=== PATIENT | male | born 1930 | race Caucasian/White ===

== ENCOUNTER 2017-11-24 06:53 | Inpatient (IN) | payer MEDICARE, BC ==
--- NOTE | 2017-11-24 07:35 | ED ---
General Adult HPI - General Chief complaint: Shortness of Breath Stated complaint: SOB Time Seen by Provider: 11/24/17 07:00 Source: patient, RN notes reviewed Mode of arrival: ambulatory Limitations: no limitations - History of Present Illness Initial comments: This is an 87-year-old male who has a past medical history significant for congestive heart failure and after surgery of PE in the past patient also has a history of A. fib and a pacemaker. Patient comes in today because he states for the last 3 days after having come from [place] about a week and half ago he has been short of breath. Patient states she's hospitalized congestion and coughing up quite a bit of phlegm in the morning. Patient states when he lays flat he feels as though the dyspnea is worse. Patient states he's had no chest pain or pressure. Patient denies any palpitations. Patient denies any recent fever or chills. Patient denies abdominal pain patient denies any nausea vomiting diarrhea. Patient denies headache patient denies numbness weakness. Patient denies any lightheadedness dizziness or near syncopal episode. - Related Data Home Medications Medication Instructions Recorded Confirmed Benzonatate [Tessalon Perles] 100 mg PO TID 11/24/17 11/24/17 Budesonide/Formoterol Fumarate 2 puff INHALATION BID 11/24/17 11/24/17 [Symbicort 160-4.5 Mcg Inhaler] Finasteride [Proscar] 5 mg PO DAILY 11/24/17 11/24/17 Fluticasone Nasal [place] [Flonase 2 spr EA NOSTRIL DAILY 11/24/17 11/24/17 Nasal [place]] Furosemide [Lasix] 40 mg PO DAILY 11/24/17 11/24/17 Lisinopril [Zestril] 10 mg PO DAILY 11/24/17 11/24/17 Metoprolol Tartrate [Lopressor] 50 mg PO HS 11/24/17 11/24/17 Simvastatin [Zocor] 20 mg PO HS 11/24/17 11/24/17 Tamsulosin [Flomax] 0.4 mg PO DAILY 11/24/17 11/24/17 Warfarin [Coumadin] 5 mg PO DAILY 11/24/17 11/24/17 guaiFENesin [Mucinex] 600 mg PO 11/24/17 Allergies Allergy/AdvReac Type Severity Reaction Status Date / Time No Known Allergies Allergy Verified 11/24/17 07:02 Review of Systems ROS Statement: Those systems with pertinent positive or pertinent negative responses have been documented in the HPI. ROS Other: All systems not noted in ROS Statement are negative. Past Medical History Past Medical History: Atrial Fibrillation, Heart Failure, Hyperlipidemia, Hypertension, Prostate Disorder History of Any Multi-Drug Resistant Organisms: None Reported Past Surgical History: Hernia Repair Past Psychological History: No Psychological Hx Reported Smoking Status: Former smoker Past Alcohol Use History: Occasional Past Drug Use History: None Reported General Exam - General Exam Comments Initial Comments: GENERAL: Patient is well-developed and well-nourished. Patient is nontoxic and well- hydrated and is in no acute distress. ENT: Neck is soft and supple. No significant lymphadenopathy is noted. Oropharynx is clear. Moist mucous membranes. Neck has full range of motion without eliciting any pain. EYES: The sclera were anicteric and conjunctiva were pink and moist. Extraocular movements were intact and pupils were equal round and reactive to light. Eyelids were unremarkable. PULMONARY: Unlabored respirations. Good breath sounds bilaterally. No audible rales rhonchi or wheezing was noted. CARDIOVASCULAR: There is a regular rate and rhythm without any murmurs gallops or rubs. ABDOMEN: Soft and nontender with normal bowel sounds. No palpable organomegaly was noted. There is no palpable pulsatile mass. SKIN: Skin is clear with no lesions or rashes and otherwise unremarkable. NEUROLOGIC: Patient is alert and oriented x3. Cranial nerves II through XII are grossly intact. Motor and sensory are also intact. Normal speech, volume and content. Symmetrical smile. MUSCULOSKELETAL: Normal extremities with adequate strength and full range of motion. No lower extremity swelling or edema. No calf tenderness. LYMPHATICS: No significant lymphadenopathy is noted PSYCHIATRIC: Normal psychiatric evaluation. Normal interpersonal interactions appears functionally intact in deals appropriately with others. No signs of depression. No signs of anxiety. Limitations: no limitations Course Vital Signs 11/24/17 11/24/17 06:55 08:53 Temperature 98.1 F Pulse Rate 69 Respiratory 22 18 Rate Blood Pressure 154/81 O2 Sat by Pulse 92 L Oximetry Medical Decision Making - Medical Decision Making EKG shows paced rhythm at 70 bpm MA interval is 280 QRS is 132 QT interval 442 QTC is 503. Patient's chest x-ray showed a large heart but no obvious failure. - Lab Data Result diagrams: 11/24/17 07:15 11/24/17 07:15 Lab Results 11/24/17 11/24/17 11/24/17 Range/Units 07:15 07:15 07:15 WBC 5.6 (3.8-10.6) k/uL RBC 4.51 (4.30-5.90) m/uL Hgb 14.4 (13.0-17.5) gm/dL Hct 44.9 (39.0-53.0) % MCV 99.4 (80.0-100.0) fL MCH 32.0 (25.0-35.0) pg MCHC 32.2 (31.0-37.0) g/dL RDW 13.9 (11.5-15.5) % Plt Count 218 (150-450) k/uL Neutrophils % 78 % Lymphocytes % 10 % Monocytes % 7 % Eosinophils % 2 % Basophils % 0 % Neutrophils # 4.3 (1.3-7.7) k/uL Lymphocytes # 0.6 L (1.0-4.8) k/uL Monocytes # 0.4 (0-1.0) k/uL Eosinophils # 0.1 (0-0.7) k/uL Basophils # 0.0 (0-0.2) k/uL PT (9.0-12.0) sec INR (<1.2) APTT (22.0-30.0) sec D-Dimer (<0.60) mg/L FEU Sodium 141 (137-145) mmol/L Potassium 4.0 (3.5-5.1) mmol/L Chloride 103 (98-107) mmol/L Carbon Dioxide 32 H (22-30) mmol/L Anion Gap 6 mmol/L BUN 22 H (9-20) mg/dL Creatinine 1.28 H (0.66-1.25) mg/dL Est GFR (CKD-EPI)AfAm 59 (>60 ml/min/1.73 sqM) Est GFR (CKD-EPI)NonAf 51 (>60 ml/min/1.73 sqM) Glucose 164 H (74-99) mg/dL Calcium 9.4 (8.4-10.2) mg/dL Magnesium 2.0 (1.6-2.3) mg/dL Total Bilirubin 1.0 (0.2-1.3) mg/dL AST 23 (17-59) U/L ALT 42 (21-72) U/L Alkaline Phosphatase 58 (38-126) U/L Total Creatine Kinase 42 L (55-170) U/L CK-MB (CK-2) 1.8 (0.0-2.4) ng/mL CK-MB (CK-2) Rel Index 4.3 Troponin I 0.022 (0.000-0.034) ng/mL NT-Pro-B Natriuret Pep pg/mL Total Protein 5.9 L (6.3-8.2) g/dL Albumin 3.6 (3.5-5.0) g/dL 11/24/17 11/24/17 Range/Units 07:15 07:15 WBC (3.8-10.6) k/uL RBC (4.30-5.90) m/uL Hgb (13.0-17.5) gm/dL Hct (39.0-53.0) % MCV (80.0-100.0) fL MCH (25.0-35.0) pg MCHC (31.0-37.0) g/dL RDW (11.5-15.5) % Plt Count (150-450) k/uL Neutrophils % % Lymphocytes % % Monocytes % % Eosinophils % % Basophils % % Neutrophils # (1.3-7.7) k/uL Lymphocytes # (1.0-4.8) k/uL Monocytes # (0-1.0) k/uL Eosinophils # (0-0.7) k/uL Basophils # (0-0.2) k/uL PT 39.9 H (9.0-12.0) sec INR 4.4 H (<1.2) APTT 39.6 H (22.0-30.0) sec D-Dimer <0.17 (<0.60) mg/L FEU Sodium (137-145) mmol/L Potassium (3.5-5.1) mmol/L Chloride (98-107) mmol/L Carbon Dioxide (22-30) mmol/L Anion Gap mmol/L BUN (9-20) mg/dL Creatinine (0.66-1.25) mg/dL Est GFR (CKD-EPI)AfAm (>60 ml/min/1.73 sqM) Est GFR (CKD-EPI)NonAf (>60 ml/min/1.73 sqM) Glucose (74-99) mg/dL Calcium (8.4-10.2) mg/dL Magnesium (1.6-2.3) mg/dL Total Bilirubin (0.2-1.3) mg/dL AST (17-59) U/L ALT (21-72) U/L Alkaline Phosphatase (38-126) U/L Total Creatine Kinase (55-170) U/L CK-MB (CK-2) (0.0-2.4) ng/mL CK-MB (CK-2) Rel Index Troponin I (0.000-0.034) ng/mL NT-Pro-B Natriuret Pep 60703 pg/mL Total Protein (6.3-8.2) g/dL Albumin (3.5-5.0) g/dL Disposition Clinical Impression: Congestive heart failure Disposition: ADMITTED IP TO THIS [facility] Referrals: Nonstaff,Physician [Primary Care Provider] - 1-2 days Time of Disposition: 08:56
[2017-11-24 07:59] LABS: Basophils % (A) 0 %; Eosinophils # (A) 0.1 k/uL (0-0.7); Eosinophils % (A) 2 %; HCT 44.9 % (39.0-53.0); HGB 14.4 gm/dL (13.0-17.5); Lymphocytes # (A) 0.6 k/uL (1.0-4.8); Lymphocytes % (A) 10 %; MCHC 32.2 g/dL (31.0-37.0); MCV 99.4 fL (80.0-100.0); Mean Platelet Volume 7.2; Monocytes # (A) 0.4 k/uL (0-1.0); Monocytes % (A) 7 %; Neutrophils # (A) 4.3 k/uL (1.3-7.7); Neutrophils % (A) 78 %; Platelet Count 218 k/uL (150-450); RBC 4.51 m/uL (4.30-5.90); RDW 13.9 % (11.5-15.5); WBC 5.6 k/uL (3.8-10.6)
[2017-11-24 08:01] LABS: Albumin 3.6 g/dL (3.5-5.0); Calcium 9.4 mg/dL (8.4-10.2); Total Protein 5.9 g/dL (6.3-8.2)
[2017-11-24 08:06] LABS: INR 4.4 (<1.2); Partial Thromboplastin Time 39.6 sec (22.0-30.0); Prothrombin Time 39.9 sec (9.0-12.0)
[2017-11-24 08:09] LABS: D-Dimer <0.17 mg/L FEU (<0.60)
--- NOTE | 2017-11-24 08:09 | XR ---
EXAMINATION TYPE: XR chest 2V DATE OF EXAM: 11/24/2017 HISTORY: difficulty breathing. REFERENCE: NONE. FINDINGS: There is a bipolar pacemaker place on the left. The heart is enlarged. There is some left basilar airspace disease either representing atelectasis or pneumonia. The right lung appears clear. Pleural spaces are clear. IMPRESSION: 1. CARDIOMEGALY. 2. LEFT BASILAR AIRSPACE DISEASE.
[2017-11-24 08:25] LABS: Creatine Kinase MB 1.8 ng/mL (0.0-2.4); Troponin I 0.022 ng/mL (0.000-0.034)
[2017-11-24] MEDS ORDERED: FUROSEMIDE 10 MG/ML 4 ML VIAL IV STA (08:51)
[2017-11-24] MEDS ORDERED: ASPIRIN 325 MG TAB PO STA (08:56)
[2017-11-24] MEDS: NITROGLYCERIN OINT 1 INCH/GM PACKET TOPICAL SCH ×4 (09:45→20:07)
--- NOTE | 2017-11-24 14:16 | P.CRDCN ---
History of Present Illness Consult date: 11/24/17 Requesting physician: Viraj Suarez Reason for Consult (text): CHF Chief complaint: shortness of breath, cough, chest congestion History of present illness: This is a pleasant 87-year-old gentleman who resides in [facility] and follows with a career education teacher at [place]. He has a known history of pulmonary embolism, persistent atrial fibrillation status post cardioversion, currently maintaining sinus rhythm, hypertension, hyperlipidemia, sleep apnea, recently diagnosed with congestive heart failure in September of this year. According to the patient he was hospitalized in September and and was told he had a week heart per echo believes they told him his ejection fraction was 25%. He was also diagnosed at that time with a viral pneumonia and by October he was feeling much better. Recently came to visit a friend in [place] on November 14 and has progressively been feeling a little worse. Sunday he noticed some chest congestion and coughing with some orthopnea and noticed progressively worsening shortness of breath starting on . Chest x-ray on admission showed left basilar airspace disease. He is on Coumadin for atrial fibrillation and his INR on admission was 4.4 which he apparently has not had checked as his been having difficulty establishing care here. EKG showed atrial and ventricular paced rhythm. Cornea the patient has last stress test was about 6 years ago and was normal. 2 years ago he had did have an echocardiogram that showed normal heart function. Laboratory values showed a BUN of 22 and creatinine 1.28 with a troponin of 0.022 and a NT proBNP of 19, 500. Upon examination he is sitting up in a chair. He is feeling somewhat better but continues to complain of congestion and some shortness of breath. He said he noticed about a year ago to become more short of breath with walking as he does so regularly. He does get occasional lower extremity edema which he takes an extra Lasix for. He monitors his daily weight and takes extra Lasix as needed. He has been eating out more since visiting here. Past Medical History Past Medical History: Atrial Fibrillation, Heart Failure, Hyperlipidemia, Hypertension, Prostate Disorder, Sleep Apnea/CPAP/BIPAP History of Any Multi-Drug Resistant Organisms: None Reported Past Surgical History: Hernia Repair, Pacemaker Additional Past Surgical History / Comment(s): exploratory sugery of right kidney Type of Cardiac Device: Permanent Pacemaker Device Placement Date:: 2016 Past Psychological History: No Psychological Hx Reported Smoking Status: Former smoker Past Alcohol Use History: Occasional Past Drug Use History: None Reported Medications and Allergies Home Medications Medication Instructions Recorded Confirmed Type Benzonatate [Tessalon Perles] 100 mg PO TID PRN 11/24/17 11/24/17 History Budesonide/Formoterol Fumarate 2 puff INHALATION RT-BID 11/24/17 11/24/17 History [Symbicort 160-4.5 Mcg Inhaler] Cholecalciferol (Vitamin D3) 4,000 unit PO DAILY 11/24/17 11/24/17 History [Vitamin D3] Finasteride [Proscar] 5 mg PO HS 11/24/17 11/24/17 History Fluticasone Nasal [place] [Flonase 2 spr EA NOSTRIL DAILY 11/24/17 11/24/17 History Nasal [place]] Furosemide [Lasix] 40 mg PO DAILY 11/24/17 11/24/17 History Lisinopril [Zestril] 10 mg PO DAILY 11/24/17 11/24/17 History Metoprolol Succinate (ER) [Toprol 50 mg PO HS 11/24/17 11/24/17 History Xl] Multivitamins, Thera [Multivitamin 1 tab PO DAILY 11/24/17 11/24/17 History (formulary)] Simvastatin [Zocor] 20 mg PO HS 11/24/17 11/24/17 History Tamsulosin [Flomax] 0.4 mg PO HS 11/24/17 11/24/17 History Warfarin [Coumadin] 2.5 mg PO SUMOTUTHFR 11/24/17 11/24/17 History Warfarin [Coumadin] 5 mg PO WESA 11/24/17 11/24/17 History guaiFENesin [Mucinex] 600 mg PO Q12H 11/24/17 11/24/17 History Allergies Allergy/AdvReac Type Severity Reaction Status Date / Time No Known Allergies Allergy Verified 11/24/17 12:46 Physical Exam Vitals: Vital Signs Temp Pulse Pulse Resp BP BP Pulse Ox 11/24/17 10:00 96.0 F L 71 16 143/91 94 L 11/24/17 09:19 72 16 139/100 95 11/24/17 08:53 18 11/24/17 08:00 76 16 136/89 97 11/24/17 06:55 98.1 F 69 22 154/81 92 L Intake and Output 11/23/17 11/24/17 11/24/17 22:59 06:59 14:59 Other: Weight 95.164 kg 95.6 kg PHYSICAL EXAMINATION: HEENT: [Head is atraumatic, normocephalic. Pupils equal, round. Neck is supple. There is no elevated jugular venous pressure.] HEART EXAMINATION: [Heart sounds regular, S1 and S2 with a systolic murmur.] CHEST EXAMINATION:[ Lungs are clear to auscultation and precussion. No chest wall tenderness is noted on palpation or with deep breathing.] ABDOMEN: [ Soft, nontender. Bowel sounds are heard. No organomegaly noted]. EXTREMITIES:[ 2+ peripheral pulses with evidence of trace peripheral edema and no calf tenderness noted. Bilateral lower extremity discoloration noted]. NEUROLOGIC [patient is awake, alert and oriented x3.] . Results 11/24/17 07:15 11/24/17 07:15 Cardiac Enzymes 11/24/17 11/24/17 Range/Units 07:15 07:15 AST 23 (17-59) U/L CK-MB (CK-2) 1.8 (0.0-2.4) ng/mL Troponin I 0.022 (0.000-0.034) ng/mL Coagulation 11/24/17 Range/Units 07:15 PT 39.9 H (9.0-12.0) sec APTT 39.6 H (22.0-30.0) sec CBC 11/24/17 Range/Units 07:15 WBC 5.6 (3.8-10.6) k/uL RBC 4.51 (4.30-5.90) m/uL Hgb 14.4 (13.0-17.5) gm/dL Hct 44.9 (39.0-53.0) % Plt Count 218 (150-450) k/uL Comprehensive Metabolic Panel 11/24/17 Range/Units 07:15 Sodium 141 (137-145) mmol/L Potassium 4.0 (3.5-5.1) mmol/L Chloride 103 (98-107) mmol/L Carbon Dioxide 32 H (22-30) mmol/L BUN 22 H (9-20) mg/dL Creatinine 1.28 H (0.66-1.25) mg/dL Glucose 164 H (74-99) mg/dL Calcium 9.4 (8.4-10.2) mg/dL AST 23 (17-59) U/L ALT 42 (21-72) U/L Alkaline Phosphatase 58 (38-126) U/L Total Protein 5.9 L (6.3-8.2) g/dL Albumin 3.6 (3.5-5.0) g/dL Current Medications Generic Name Dose Route Start Last Admin Trade Name Donovanq PRN Reason Stop Dose Admin Atorvastatin Calcium 10 mg 11/24/17 21:00 Lipitor PO HS ADAMS Budesonide/Formoterol Fumarate 2 puff 11/24/17 20:00 Symbicort 160-4.5 Mcg Inhaler INHALATION RT-BID ADAMS Finasteride 5 mg 11/25/17 09:00 Proscar PO DAILY ADAMS Fluticasone Propionate 2 spray 11/25/17 09:00 Flonase Nasal [place] EA NOSTRIL DAILY ADAMS Furosemide 40 mg 11/24/17 16:00 Lasix IV Q8HR ADAMS Metoprolol Tartrate 50 mg 11/24/17 21:00 Lopressor PO HS ADAMS Nitroglycerin 1 inch 11/24/17 09:00 11/24/17 12:34 Nitro-Bid Oint TOPICAL Not Given QID ADAMS Tamsulosin HCl 0.4 mg 11/25/17 09:00 Flomax PO DAILY ADAMS Intake and Output 11/23/17 11/24/17 11/24/17 22:59 06:59 14:59 Other: Weight 95.164 kg 95.6 kg Patient Weight 11/25/17 06:59 Weight 95.6 kg 11/24/17 07:15 11/24/17 07:15 Assessment and Plan Assessment: #1 acute on chronic systolic congestive heart failure #2 persistent atrial fibrillation, status post cardioversion, maintaining sinus rhythm, on Coumadin #3 sick sinus syndrome with pacemaker implantation #4 hypertension #5 sleep apnea Plan: From cardiology's perspective we will review echocardiogram. The patient did take his lisinopril this morning. We will hold lisinopril and start Entresto on Sunday. Further recommendations to follow. [facility] SPECIALIST note has been reviewed, I agree with a documented findings and plan of care. Patient was seen and examined.
[2017-11-24] MEDS: FUROSEMIDE 10 MG/ML 4 ML VIAL IV SCH ×2 (15:09→23:26)
--- NOTE | 2017-11-24 15:44 | ECHOF ---
Referral Reason:Heart Failure MEASUREMENTS -------- HEIGHT: 182.9 cm WEIGHT: 94.8 kg BP: RVIDd: 3.2 cm (< 3.3) IVSd: 1.4 cm (0.6 - 1.1) LVIDd: 6.7 cm (3.9 - 5.3) LVPWd: 1.6 cm (0.6 - 1.1) IVSs: 1.9 cm LVIDs: 5.8 cm LVPWs: 1.4 cm LA Diam: 4.1 cm (2.7 - 3.8) LAESV Index (A-L): 61.02 ml/m Ao Diam: 3.7 cm (2.0 - 3.7) AV Cusp: 1.6 cm (1.5 - 2.6) LA Diam: 3.9 cm (2.7 - 3.8) MV EXCURSION: 18.742 mm (> 18.000) MV EF SLOPE: 60 mm/s (70 - 150) EPSS: 2.6 cm MV E Phani: 0.53 m/s MV DecT: 61 ms MV A Phani: 0.48 m/s MV E/A Ratio: 1.10 RAP: 5.00 mmHg RVSP: 51.18 mmHg FINDINGS -------- Paced rhythm. This was a technically good study. The left ventricle is mildly dilated. There is severe global hypokinesis of LV . Overall left jackelyn tricular systolic function is severely impaired with, an EF < 20%. Both the mean atrial pressure as well as the LV end diastolic pressure is elevated 26.20. The right ventricle is normal in size. The left atrium is moderately dilated. LA is severely dilated >40 ml/m2 The right atrial size is normal. The aortic valve is trileaflet, and appears structurally normal. No aortic stenosis or regurgitation. Mild mitral annular calcification present. Mild mitral regurgitation is present. Mild tricuspid regurgitation present. There is moderate pulmonary hypertension. The right ventric ular systolic pressure, as measured by Doppler, is 51.18mmHg. Trace/mild (physiologic) pulmonic regurgitation. The aortic root size is normal. There is no pericardial effusion. CONCLUSIONS -------- 1. The left ventricle is mildly dilated. 2. There is severe global hypokinesis of LV . 3. Overall left ventricular systolic function is severely impaired with, an EF < 20%. 4. Both the mean atrial pressure as well as the LV end diastolic pressure is elevated 26.20. 5. The right ventricle is normal in size. 6. The left atrium is moderately dilated. 7. LA is severely dilated >40 ml/m2 8. The right atrial size is normal. 9. The aortic valve is trileaflet, and appears structurally normal. No aortic stenosis or regurgitati on. 10. Mild mitral annular calcification present. 11. Mild mitral regurgitation is present. 12. Mild tricuspid regurgitation present. 13. There is moderate pulmonary hypertension. 14. The right ventricular systolic pressure, as measured by Doppler, is 51.18mmHg. 15. Trace/mild (physiologic) pulmonic regurgitation. 16. The aortic root size is normal. 17. There is no pericardial effusion. POST DOC FELLOWSHIP: Imelda Lucio RDCS
--- NOTE | 2017-11-24 18:08 | P.HPIM ---
History of Present Illness H&P Date: 11/24/17 Chief Complaint: SOB 87-year-old male with past medical history of hypertension, hyperlipidemia, CHF , atrial fibrillation, sleep apnea presents to the ED for progressive shortness of breath. Patient states he was diagnosed with a viral pneumonia and new onset CHF at [facility] in [place] on September 2017 which initially started as. Since then, patient reports shortness of breath with exertion associated with cough. Cough is productive of white sputum. He denies orthopnea. He denies headache, lower extremity edema, palpitations, changes in urination or bowel habits. In the ED, chest x-ray show cardiomegaly with left basilar airspace disease. INR is 4.4. Creatinine was 1.28. Glucose was 164. BNP was 19,500. Past Medical History Past Medical History: Atrial Fibrillation, Heart Failure, Hyperlipidemia, Hypertension, Prostate Disorder, Sleep Apnea/CPAP/BIPAP History of Any Multi-Drug Resistant Organisms: None Reported Past Surgical History: Hernia Repair, Pacemaker Additional Past Surgical History / Comment(s): exploratory sugery of right kidney Type of Cardiac Device: Permanent Pacemaker Device Placement Date:: 2016 Past Psychological History: No Psychological Hx Reported Smoking Status: Former smoker Past Alcohol Use History: Occasional Past Drug Use History: None Reported Medications and Allergies Home Medications Medication Instructions Recorded Confirmed Type Benzonatate [Tessalon Perles] 100 mg PO TID PRN 11/24/17 11/24/17 History Budesonide/Formoterol Fumarate 2 puff INHALATION RT-BID 11/24/17 11/24/17 History [Symbicort 160-4.5 Mcg Inhaler] Cholecalciferol (Vitamin D3) 4,000 unit PO DAILY 11/24/17 11/24/17 History [Vitamin D3] Finasteride [Proscar] 5 mg PO HS 11/24/17 11/24/17 History Fluticasone Nasal [place] [Flonase 2 spr EA NOSTRIL DAILY 11/24/17 11/24/17 History Nasal [place]] Furosemide [Lasix] 40 mg PO DAILY 11/24/17 11/24/17 History Lisinopril [Zestril] 10 mg PO DAILY 11/24/17 11/24/17 History Metoprolol Succinate (ER) [Toprol 50 mg PO HS 11/24/17 11/24/17 History Xl] Multivitamins, Thera [Multivitamin 1 tab PO DAILY 11/24/17 11/24/17 History (formulary)] Simvastatin [Zocor] 20 mg PO HS 11/24/17 11/24/17 History Tamsulosin [Flomax] 0.4 mg PO HS 11/24/17 11/24/17 History Warfarin [Coumadin] 2.5 mg PO SUMOTUTHFR 11/24/17 11/24/17 History Warfarin [Coumadin] 5 mg PO WESA 11/24/17 11/24/17 History guaiFENesin [Mucinex] 600 mg PO Q12H 11/24/17 11/24/17 History Allergies Allergy/AdvReac Type Severity Reaction Status Date / Time No Known Allergies Allergy Verified 11/24/17 12:46 Physical Exam Vitals: Vital Signs Temp Pulse Pulse Resp BP BP Pulse Ox 11/24/17 15:41 96.7 F L 71 18 130/78 94 L 11/24/17 10:00 96.0 F L 71 16 143/91 94 L 11/24/17 09:19 72 16 139/100 95 11/24/17 08:53 18 11/24/17 08:00 76 16 136/89 97 11/24/17 06:55 98.1 F 69 22 154/81 92 L Intake and Output 11/24/17 11/24/17 11/24/17 06:59 14:59 22:59 Output Total 600 1250 Balance -600 -1250 Output: Urine 600 1250 Other: Weight 95.164 kg 95.6 kg 95.6 kg General: non toxic, no distress, appears at stated age Derm: warm, dry Head: atraumatic, normocephalic, symmetric Eyes: EOMI, no lid lag, anicteric sclera Mouth: no lip lesion, mucus membranes moist Cardiovascular: S1S2 reg, no murmur, positive posterior tibial pulse bilateral, Lungs: Decreased breath sounds bilaterally, no rhonchi, no rales , no accessory muscle use Abdominal: soft, nontender to palpation, no guarding, no appreciable organomegaly Ext: no gross muscle atrophy, no edema, no contractures Neuro: CN II-XI grossly intact, no focal neuro deficits Psych: Alert, oriented, appropriate affect Results CBC & Chem 7: 11/24/17 07:15 11/24/17 07:15 Labs: Abnormal Lab Results - Last 24 Hours (Table) 11/24/17 11/24/17 11/24/17 Range/Units 07:15 07:15 07:15 Lymphocytes # 0.6 L (1.0-4.8) k/uL PT (9.0-12.0) sec INR (<1.2) APTT (22.0-30.0) sec Carbon Dioxide 32 H (22-30) mmol/L BUN 22 H (9-20) mg/dL Creatinine 1.28 H (0.66-1.25) mg/dL Glucose 164 H (74-99) mg/dL Total Creatine Kinase 42 L (55-170) U/L Total Protein 5.9 L (6.3-8.2) g/dL 11/24/17 Range/Units 07:15 Lymphocytes # (1.0-4.8) k/uL PT 39.9 H (9.0-12.0) sec INR 4.4 H (<1.2) APTT 39.6 H (22.0-30.0) sec Carbon Dioxide (22-30) mmol/L BUN (9-20) mg/dL Creatinine (0.66-1.25) mg/dL Glucose (74-99) mg/dL Total Creatine Kinase (55-170) U/L Total Protein (6.3-8.2) g/dL Chest x-ray: report reviewed Thrombosis Risk Factor Assmnt - Choose All That Apply Any of the Below Risk Factors Present?: Yes Each Factor Represents 1 point: Heart failure (<1month) Other Risk Factors: Yes Each Risk Factor Represents 3 Points: Age 75 years or older Thrombosis Risk Factor Assessment Total Risk Factor Score: 4 Thrombosis Risk Factor Assessment Level: Moderate Risk Assessment and Plan Assessment: Assessment 87 year old M with PMH of A-Fib, CHF, COPD presents to the ED for progressive SOB. Admitted for CHF exacerbation. Plan 1. CHF exacerbation: Diuresis with Lasix 40 IV TID. Echo shows EF < 20%. Continue BB and Entresto. Daily weights. Ins and Outs. Telemetry monitoring. FU Cardiology consult. 2. A-Fib: Rate control with Metoprolol 50 QHS. Hold Coumadin for supratherapeutic INR. Telemetry monitoring. FU Cardiology 3. COPD: Continue Symbicort 2 puff BID. 4. Supratherapeutic INR: INR 4.4 on Coumadin 5. Will hold today. FU INR in the AM 5. Elevated Cr: BUN 22 Cr 1.28. Unknown baseline. Continue to monitor.. 6. BPH: Continue Proscar 4 mg PO QD, Flomax.
[2017-11-24] MEDS: SYMBICORT 160-4.5 MCG INHALER INHALATION SCH (19:49)
[2017-11-24] MEDS: METOPROLOL TARTRATE 50 MG TAB PO SCH (20:07)
[2017-11-24] MEDS: ATORVASTATIN 10 MG TAB PO SCH (20:07)
[2017-11-25] MEDS ORDERED: LISINOPRIL 10 MG TAB PO SCH (09:00)
[2017-11-25] MEDS: SYMBICORT 160-4.5 MCG INHALER INHALATION SCH ×2 (09:08→21:17)
[2017-11-25] MEDS: FINASTERIDE 5 MG TAB PO SCH (09:26)
[2017-11-25] MEDS: FUROSEMIDE 10 MG/ML 4 ML VIAL IV SCH ×2 (09:26→16:08)
[2017-11-25] MEDS: TAMSULOSIN 0.4 MG CAP.ER.24H PO SCH (09:27)
[2017-11-25] MEDS: NITROGLYCERIN OINT 1 INCH/GM PACKET TOPICAL SCH ×4 (09:27→20:00)
--- NOTE | 2017-11-25 11:42 | P.PN ---
Subjective Progress Note Date: 11/25/17 Principal diagnosis: CHF exacerbation Patient was seen and examined. No acute events overnight. Lost 2KG since admission. Reports improved breathing since yesterday. Endorses polyuria. Back to baseline. Objective - Vital Signs Vital signs: Vital Signs Temp 97.0 F L 11/24/17 23:27 Pulse 73 11/25/17 04:00 Resp 24 11/25/17 04:00 BP 144/88 11/25/17 04:00 Pulse Ox 94 L 11/25/17 04:00 Intake & Output 11/24/17 11/25/17 11/25/17 18:59 06:59 18:59 Output Total 1850 1450 Balance -1850 -1450 Weight 95.6 kg 92.7 kg Output: Urine 1850 1450 Other: # Voids 1 - Exam General: non toxic, no distress, appears at stated age Derm: warm, dry Head: atraumatic, normocephalic, symmetric Eyes: EOMI, no lid lag, anicteric sclera Mouth: no lip lesion, mucus membranes moist Cardiovascular: S1S2 reg, no murmur, positive posterior tibial pulse bilateral, Lungs: Decreased breath sounds bilaterally, no rhonchi, no rales , no accessory muscle use Abdominal: soft, nontender to palpation, no guarding, no appreciable organomegaly Ext: no gross muscle atrophy, no edema, no contractures Neuro: CN II-XI grossly intact, no focal neuro deficits Psych: Alert, oriented, appropriate affect - Labs CBC & Chem 7: 11/24/17 07:15 11/24/17 07:15 Assessment and Plan Assessment: Assessment 87 year old M with PMH of A-Fib, CHF, COPD presents to the ED for progressive SOB. Admitted for CHF exacerbation. Plan 1. CHF exacerbation: Continue diuresis with Lasix 40 IV TID. Echo shows EF < 20 % with global hypokinesis. Viral myocarditis given history? Continue BB and start Entresto on Sunday. Daily weights. Ins and Outs. Telemetry monitoring. O2 per NC to maintain O2 > 92%. FU Cardiology 2. A-Fib: Rate control with Metoprolol 50 QHS. Hold Coumadin for supratherapeutic INR. Telemetry monitoring. FU INR, Cardiology 3. COPD: Stable. Continue Symbicort 2 puff BID. 4. Supratherapeutic INR: INR 4.4 on Coumadin 5. Will hold. FU INR 5. Elevated Cr: BUN 22 Cr 1.28 GFR 59. Unknown baseline. FU BMP 6. BPH: Continue Proscar 4 mg PO QD, Flomax. Patient is in PH until mid-December. States he has good FU with Cardiology at [facility] for CHF and Coumadin clinic.
[2017-11-25 12:26] LABS: Calcium 9.1 mg/dL (8.4-10.2); Potassium 3.8 mmol/L (3.5-5.1)
[2017-11-25 12:30] LABS: INR 3.7 (<1.2); Prothrombin Time 33.4 sec (9.0-12.0)
[2017-11-25] MEDS: FLUTICASONE 50MCG/SPRAY NASAL 16GM EA NOSTRIL SCH (17:24)
[2017-11-25] MEDS: METOPROLOL TARTRATE 50 MG TAB PO SCH (19:57)
[2017-11-25] MEDS: ATORVASTATIN 10 MG TAB PO SCH (19:57)
[2017-11-26] MEDS: FUROSEMIDE 10 MG/ML 4 ML VIAL IV SCH ×2 (00:01→09:09)
--- NOTE | 2017-11-26 04:08 | PN ---
PROGRESS NOTE This patient is admitted with congestive cardiac failure. Patient has been diagnosed with a cardiomyopathy recently. Presently he is doing better. Patient's breathing improved. Respirations are not labored. Blood pressure is 129/85. Oxygen saturation is 94%. First and second heart sounds are normal. Lung exam reveals a few basal rales. The patient's INR has come down to 3.7, creatinine is 1.20. We will start the patient on Entresto from tomorrow. Patient's echocardiogram reveals severely impaired left ventricular systolic function. MMODL / IJN: [id number] /
[2017-11-26] MEDS: SYMBICORT 160-4.5 MCG INHALER INHALATION SCH ×2 (08:08→19:47)
[2017-11-26] MEDS: TAMSULOSIN 0.4 MG CAP.ER.24H PO SCH (09:08)
[2017-11-26] MEDS: SACUBITRIL/VALSARTAN 24 MG-26 MG TABLET PO SCH ×2 (09:08→21:17)
[2017-11-26] MEDS: FLUTICASONE 50MCG/SPRAY NASAL 16GM EA NOSTRIL SCH (09:09)
[2017-11-26] MEDS: FINASTERIDE 5 MG TAB PO SCH (09:09)
[2017-11-26] MEDS: NITROGLYCERIN OINT 1 INCH/GM PACKET TOPICAL SCH (09:09)
[2017-11-26 12:10] LABS: Prothrombin Time 26.5 sec (9.0-12.0)
[2017-11-26] MEDS: SPIRONOLACTONE 25 MG TAB PO SCH (12:36)
[2017-11-26] MEDS ORDERED: METOPROLOL SUCCINATE (ER) 50 MG TAB.ER.24H PO STA (12:54)
--- NOTE | 2017-11-26 13:00 | P.PN ---
Subjective Progress Note Date: 11/26/17 Principal diagnosis: CHF exacerbation. patient was seen and examined. No acute events overnight. Improved breathing since admission. He has no complaints today. Objective - Vital Signs Vital signs: Vital Signs Temp 98.0 F 11/26/17 07:45 Pulse 70 11/26/17 07:45 Resp 18 11/26/17 07:45 BP 130/79 11/26/17 07:45 Pulse Ox 93 L 11/26/17 07:45 Intake & Output 11/25/17 11/26/17 11/26/17 18:59 06:59 18:59 Intake Total 230 Output Total 2100 900 Balance -1870 -900 Weight 91.1 kg Intake: Oral 230 Output: Urine 2100 900 Other: Voiding Method Urinal Urinal Toilet Urinal # Voids 1 2 - Exam General: non toxic, no distress, appears at stated age Derm: warm, dry Head: atraumatic, normocephalic, symmetric Eyes: EOMI, no lid lag, anicteric sclera Mouth: no lip lesion, mucus membranes moist Cardiovascular: S1S2 reg, no murmur, positive posterior tibial pulse bilateral, Lungs: Decreased breath sounds bilaterally, no rhonchi, no rales , no accessory muscle use Abdominal: soft, nontender to palpation, no guarding, no appreciable organomegaly Ext: no gross muscle atrophy, no edema, no contractures Neuro: CN II-XI grossly intact, no focal neuro deficits Psych: Alert, oriented, appropriate affect - Labs CBC & Chem 7: 11/24/17 07:15 11/25/17 11:59 Labs: Abnormal Lab Results - Last 24 Hours (Table) 11/26/17 Range/Units 11:22 PT 26.5 H (9.0-12.0) sec INR 3.0 H (<1.2) Assessment and Plan Assessment: Assessment 87 year old M with PMH of A-Fib, CHF, COPD presents to the ED for progressive SOB. Admitted for CHF exacerbation. Plan 1. CHF exacerbation: Lasix 40 IV TID decreased to 40 mg PO BID. Echo shows EF < 20%. Continue BB and Entresto. Started Aldactone 25 mg PO QD. Daily weights. Ins and Outs. Telemetry monitoring. FU Cardiology 2. A-Fib: Rate control with Metoprolol 50 QHS. Can resume Coumadin tonight. Telemetry monitoring. FU Cardiology 3. COPD: Continue Symbicort 2 puff BID. 4. Supratherapeutic INR: INR 4.4 to 3.0. May resume Coumadin tonight. 5. Elevated Cr: Resolved. BUN 24 Cr 1.20. Unknown baseline. Likely due to dehydration. 6. BPH: Continue Proscar 4 mg PO QD, Flomax. Discussed with WATER FILTER CLEANER Mess. Started Entresto and Aldactone today. Would like to watch for one more day. Likely DC tomorrow. Patient to FU with Mexican Food Machine Tender at [facility].
--- NOTE | 2017-11-26 14:36 | PN ---
PROGRESS NOTE This patient was admitted with symptoms of congestive cardiac failure. Echocardiogram reveals a severely impaired left ventricular systolic function. The patient's blood pressure is 130/79 mmHg. Heart rate is 70 per minute, oxygen saturation is 93%. First and second heart sounds are normal. Lungs are clinically clear to auscultation and percussion. The patient will be started on Entresto today as well as Aldactone 25 mg daily. The patient had 1 run of nonsustained VT. We will change patient's Lopressor to succinate 50 mg daily. If the patient remains stable, he can be discharged home tomorrow and he will then follow up with [facility] in [place]. MMNEVINL / BRENDAN: [id number] /
[2017-11-26] MEDS: FUROSEMIDE 40 MG TAB PO SCH (19:06)
[2017-11-26] MEDS: ATORVASTATIN 10 MG TAB PO SCH (21:17)
[2017-11-27 06:33] LABS: INR 2.5 (<1.2); Prothrombin Time 22.9 sec (9.0-12.0)
[2017-11-27 06:34] VITALS: RESP 18
[2017-11-27] MEDS: SYMBICORT 160-4.5 MCG INHALER INHALATION SCH (08:19)
[2017-11-27] MEDS: FUROSEMIDE 40 MG TAB PO SCH (08:56)
[2017-11-27] MEDS: TAMSULOSIN 0.4 MG CAP.ER.24H PO SCH (08:56)
[2017-11-27] MEDS: FINASTERIDE 5 MG TAB PO SCH (08:56)
[2017-11-27] MEDS: SACUBITRIL/VALSARTAN 24 MG-26 MG TABLET PO SCH (08:56)
[2017-11-27] MEDS: SPIRONOLACTONE 25 MG TAB PO SCH (08:57)
--- NOTE | 2017-11-27 08:59 | P.PN ---
Subjective Progress Note Date: 11/27/17 Principal diagnosis: CHF exacerbation Patient was seen and examined. No acute events overnight. Entresto started yesterday. Objective - Vital Signs Vital signs: Vital Signs Temp 98.1 F 11/27/17 04:00 Pulse 77 11/27/17 04:00 Resp 18 11/27/17 04:00 BP 132/83 11/27/17 04:00 Pulse Ox 95 11/27/17 04:00 Intake & Output 11/26/17 11/27/17 11/27/17 18:59 06:59 18:59 Intake Total 430 118 Output Total 900 200 Balance -470 -82 Weight 91.6 kg Intake: Oral 430 118 Output: Urine 900 200 Other: Voiding Method Toilet Toilet Urinal Urinal # Voids 1 1 - Exam General: non toxic, no distress, appears at stated age Derm: warm, dry Head: atraumatic, normocephalic, symmetric Eyes: EOMI, no lid lag, anicteric sclera Mouth: no lip lesion, mucus membranes moist Cardiovascular: S1S2 reg, no murmur Lungs: Decreased breath sounds bilaterally, no rhonchi, no rales , no accessory muscle use Abdominal: soft, nontender to palpation, no guarding, no appreciable organomegaly Ext: no gross muscle atrophy, no edema, no contractures Neuro: CN II-XI grossly intact, no focal neuro deficits Psych: Alert, oriented, appropriate affect - Labs CBC & Chem 7: 11/24/17 07:15 11/25/17 11:59 Labs: Abnormal Lab Results - Last 24 Hours (Table) 11/26/17 11/27/17 Range/Units 11:22 05:54 PT 26.5 H 22.9 H (9.0-12.0) sec INR 3.0 H 2.5 H (<1.2) Assessment and Plan Assessment: Assessment 87 year old M with PMH of A-Fib, CHF, COPD presents to the ED for progressive SOB. Admitted for CHF exacerbation. Plan 1. CHF exacerbation: Continue Lasix 40 mg PO BID. Echo shows EF < 20%. Continue Metoprolol 50 mg PO QHS, Entresto and Aldactone 25 mg PO QD. Daily weights. Ins and Outs. Telemetry monitoring. FU BMP to check for electrolytes and Cr. 2. A-Fib: Rate control with Metoprolol 50 QHS. Continue Coumadin 5 mg PO QD. Telemetry monitoring. FU Cardiology 3. COPD: Continue Symbicort 2 puff BID. 4. Supratherapeutic INR: Resolved. INR 4.4 to 3.0 to 2.5. Resume Coumadin. 5. Elevated Cr: Resolved. BUN 24 Cr 1.20. Unknown baseline. Likely due to dehydration. 6. BPH: Continue Proscar 4 mg PO QD, Flomax. Will ensure kidney function is okay, since starting Entresto. Patient to likely be discharged today with close follow-up with his PCP in 1-2 days. He will need to have his INR checked in 1-2 days. Follow-up with cardiology in [facility].
[2017-11-27] MEDS ORDERED: METOPROLOL SUCCINATE (ER) 50 MG TAB.ER.24H PO SCH (09:00)
[2017-11-27 09:15] LABS: Calcium 8.6 mg/dL (8.4-10.2); Potassium 3.6 mmol/L (3.5-5.1)
[2017-11-27 09:19] VITALS: BP 133/89; PULSE 72; TEMP 97.5
[2017-11-27 11:21] VITALS: BMI 27.3
--- NOTE | 2017-11-27 11:59 | P.DS ---
Providers Date of admission: 11/25/17 09:34 Expected date of discharge: 11/27/17 Attending physician: Viraj Suarez MD Consults: 11/24/17 08:56 Consult Physician Routine Consulting Provider: [facility] Consult Reason/Comments: Congestive heart failure Do you want consulting provider notified?: Yes Primary care physician: Physician Nonstaff Hospital Course: 87-year-old male with past medical history of hypertension, hyperlipidemia, CHF , atrial fibrillation, sleep apnea presents to the ED for progressive shortness of breath. Patient states he was diagnosed with a viral pneumonia and new onset CHF at [facility] in [place] on September 2017 which initially started as. Since then, patient reports shortness of breath with exertion associated with cough. Cough is productive of white sputum. He denies orthopnea. He denies headache, lower extremity edema, palpitations, changes in urination or bowel habits. In the ED, chest x-ray show cardiomegaly with left basilar airspace disease. INR is 4.4. Creatinine was 1.28. Glucose was 164. BNP was 19,500. For his CHF exacerbation patient was diuresed with Lasix 40 mg IV times a day. Echocardiogram was obtained which showed an ejection fraction less than 20%. He was resumed on his metoprolol. Lisinopril was discontinued, and patient was started on Entresto, and Aldactone. His Lasix was eventually transitioned to Lasix 40 mg by mouth twice a day. Patient was advised to follow-up with cardiology in one week. For his atrial fibrillation, his heart rate was controlled with metoprolol 50 mg at bedtime. His Coumadin was held due to a supratherapeutic INR. His INR was within normal range at the time of discharge. Patient was advised to resume his home dose of Coumadin. His home medications were otherwise resumed. Patient was advised to follow-up with his primary care provider within one to 2 days of discharge for an INR check. General: non toxic, no distress, appears at stated age Derm: warm, dry Head: atraumatic, normocephalic, symmetric Eyes: EOMI, no lid lag, anicteric sclera Mouth: no lip lesion, mucus membranes moist Cardiovascular: S1S2 reg, no murmur, positive posterior tibial pulse bilateral, Lungs: Decreased breath sounds bilaterally, no rhonchi, no rales , no accessory muscle use Abdominal: soft, nontender to palpation, no guarding, no appreciable organomegaly Ext: no gross muscle atrophy, no edema, no contractures Neuro: CN II-XI grossly intact, no focal neuro deficits Psych: Alert, oriented, appropriate affect This discharge took less than 30 minutes. Pertinent Studies: Echocardiogram Procedures: None Patient Condition at Discharge: Stable Plan - Discharge Summary Discharge Rx Participant: No New Discharge Prescriptions: New Furosemide [Lasix] 40 mg PO BID@0900,1600 #60 tab Sacubitril/Valsartan [Entresto 24 mg-26 mg Tablet] 1 each PO BID #60 tablet Spironolactone [Aldactone] 25 mg PO DAILY #30 tab Continue Fluticasone Nasal [place] [Flonase Nasal [place]] 2 spr EA NOSTRIL DAILY Budesonide/Formoterol Fumarate [Symbicort 160-4.5 Mcg Inhaler] 2 puff INHALATION RT-BID Warfarin [Coumadin] 5 mg PO WESA Tamsulosin [Flomax] 0.4 mg PO HS Simvastatin [Zocor] 20 mg PO HS Finasteride [Proscar] 5 mg PO HS Warfarin [Coumadin] 2.5 mg PO SUMOTUTHFR Multivitamins, Thera [Multivitamin (formulary)] 1 tab PO DAILY Metoprolol Succinate (ER) [Toprol XL] 50 mg PO HS Cholecalciferol (Vitamin D3) [Vitamin D3] 4,000 unit PO DAILY Discontinued Benzonatate [Tessalon Perles] 100 mg PO TID PRN PRN Reason: Cough Furosemide [Lasix] 40 mg PO DAILY Lisinopril [Zestril] 10 mg PO DAILY guaiFENesin [Mucinex] 600 mg PO Q12H Discharge Medication List Budesonide/Formoterol Fumarate [Symbicort 160-4.5 Mcg Inhaler] 2 puff INHALATION RT-BID 11/24/17 [History] Cholecalciferol (Vitamin D3) [Vitamin D3] 4,000 unit PO DAILY 11/24/17 [History] Finasteride [Proscar] 5 mg PO HS 11/24/17 [History] Fluticasone Nasal [place] [Flonase Nasal [place]] 2 spr EA NOSTRIL DAILY 11/24/17 [ History] Metoprolol Succinate (ER) [Toprol XL] 50 mg PO HS 11/24/17 [History] Multivitamins, Thera [Multivitamin (formulary)] 1 tab PO DAILY 11/24/17 [History ] Simvastatin [Zocor] 20 mg PO HS 11/24/17 [History] Tamsulosin [Flomax] 0.4 mg PO HS 11/24/17 [History] Warfarin [Coumadin] 2.5 mg PO SUMOTUTHFR 11/24/17 [History] Warfarin [Coumadin] 5 mg PO WESA 11/24/17 [History] Furosemide [Lasix] 40 mg PO BID@0900,1600 #60 tab 11/27/17 [Rx] Sacubitril/Valsartan [Entresto 24 mg-26 mg Tablet] 1 each PO BID #60 tablet [Rx] Spironolactone [Aldactone] 25 mg PO DAILY #30 tab 11/27/17 [Rx] Follow up Appointment(s)/Referral(s): [facility] [Provider Group] - 1 Week Nonstaff,Physician [Primary Care Provider] - 1-2 days Patient Instructions/Handouts: Heart Failure (DC), Heart Healthy Diet (DC), Low Sodium Diet (DC) Activity/Diet/Wound Care/Special Instructions: Entresto filled at [facility] - $10 copay card applied Please follow-up with her primary care provider within one to 2 days of discharge. Note to PCP: Please do INR check within 1-2 days of discharge. Please follow-up with her buckle strap drum operator with the appointment given to you in one week. Please take all medications as advised. Please resume your regular dosing of Coumadin. Discharge Disposition: HOME SELF-CARE
--- NOTE | 2017-11-27 13:55 | P.PN ---
Subjective Progress Note Date: 11/27/17 This is a pleasant 87-year-old gentleman who resides in [facility] and follows with a lithographic proofer apprentice at [place]. He has a known history of pulmonary embolism, persistent atrial fibrillation status post cardioversion, currently maintaining sinus rhythm, hypertension, hyperlipidemia, sleep apnea, recently diagnosed with congestive heart failure in September of this year. According to the patient he was hospitalized in September and [place] and was told he had a week heart per echo believes they told him his ejection fraction was 25%. He was also diagnosed at that time with a viral pneumonia and by October he was feeling much better. Recently came to visit a friend in [place] on November 14 and has progressively been feeling a little worse. Sunday he noticed some chest congestion and coughing with some orthopnea and noticed progressively worsening shortness of breath starting on . Chest x-ray on admission showed left basilar airspace disease. He is on Coumadin for atrial fibrillation and his INR on admission was 4.4 which he apparently has not had checked as his been having difficulty establishing care here. EKG showed atrial and ventricular paced rhythm. Cornea the patient has last stress test was about 6 years ago and was normal. 2 years ago he had did have an echocardiogram that showed normal heart function. Laboratory values showed a BUN of 22 and creatinine 1.28 with a troponin of 0.022 and a NT proBNP of 19, 500. Upon examination he is sitting up in a chair. He is feeling somewhat better but continues to complain of congestion and some shortness of breath. He said he noticed about a year ago to become more short of breath with walking as he does so regularly. He does get occasional lower extremity edema which he takes an extra Lasix for. He monitors his daily weight and takes extra Lasix as needed. He has been eating out more since visiting here. 11/27/2017 Patient was seen and examined this morning, feels well, denies any shortness of breath. Tolerating Entresto. Blood pressure 132/80 with a heart rate in the 70s, 91% on room air. INR today is 2.5, sodium 139, potassium 3.6, BUN 27, creatinine 1.1. Objective - Vital Signs Vital signs: Vital Signs Temp 97.5 F L 11/27/17 09:16 Pulse 72 11/27/17 09:16 Resp 18 11/27/17 09:16 BP 133/89 11/27/17 09:16 Pulse Ox 91 L 11/27/17 09:16 Intake & Output 11/26/17 11/27/17 11/27/17 18:59 06:59 18:59 Intake Total 430 118 Output Total 900 200 Balance -470 -82 Weight 91.6 kg 91.6 kg Intake: Oral 430 118 Output: Urine 900 200 Other: Voiding Method Toilet Toilet Toilet Urinal Urinal Urinal # Voids 1 1 - Exam PHYSICAL EXAMINATION: HEENT: [Head is atraumatic, normocephalic. Pupils equal, round. Neck is supple. There is no elevated jugular venous pressure.] HEART EXAMINATION: [Heart sounds regular, S1 and S2 with a systolic murmur.] CHEST EXAMINATION:[ Lungs are clear to auscultation and precussion. No chest wall tenderness is noted on palpation or with deep breathing.] ABDOMEN: [ Soft, nontender. Bowel sounds are heard. No organomegaly noted]. EXTREMITIES:[ 2+ peripheral pulses with evidence of trace peripheral edema and no calf tenderness noted. Bilateral lower extremity discoloration noted]. NEUROLOGIC [patient is awake, alert and oriented x3.] - Labs CBC & Chem 7: 11/24/17 07:15 11/27/17 05:54 Labs: Abnormal Lab Results - Last 24 Hours (Table) 11/27/17 11/27/17 Range/Units 05:54 05:54 PT 22.9 H (9.0-12.0) sec INR 2.5 H (<1.2) BUN 27 H (9-20) mg/dL Assessment and Plan Plan: Assessment: #1 acute on chronic systolic congestive heart failure #2 persistent atrial fibrillation, status post cardioversion, maintaining sinus rhythm, on Coumadin #3 sick sinus syndrome with pacemaker implantation #4 hypertension #5 sleep apnea Plan From cardiology's perspective, patient may be able to be discharged home today. Patient will be discharged home and Lipitor 10 mg daily, Lasix 40 mg by mouth twice a day, Toprol-XL 50 mg daily, Entresto 24/26 mg twice a day, Aldactone 25 mg daily. A follow-up appointment will be made with Dr. VC Millard in the office. Lytes BUN and creatinine will be obtained in one week. DNP note has been reviewed, I agree with a documented findings and plan of care. Patient was seen and examined.
== END 2017-11-27 13:44 | disposition home or self-care (01) | DRG 292 ==
LOC: EC 06:53 → 6SEL 09:16 → UNDOADMOB 09:16 → INTOOBSV 11-25 09:34 → 6SEL 11-25 09:34 → OBSVTOIN 11-25 09:34 → 6SEL 11-26 22:17
PROVIDERS: ADMIT Hospitalist; ATTEND Hospitalist
DX: I11.0 Hypertensive heart disease with heart failure (principal); I48.1 Persistent atrial fibrillation; I50.23 Acute on chronic systolic (congestive) heart failure; E78.5 Hyperlipidemia, unspecified; G47.30 Sleep apnea, unspecified; Z99.89 Dependence on other enabling machines and devices; I42.9 Cardiomyopathy, unspecified; J44.9 Chronic obstructive pulmonary disease, unspecified; N40.0 Benign prostatic hyperplasia without lower urinary tract symptoms; R79.1 Abnormal coagulation profile; Z79.01 Long term (current) use of anticoagulants; Z79.51 Long term (current) use of inhaled steroids; Z79.899 Other long term (current) drug therapy; Z86.711 Personal history of pulmonary embolism; Z87.891 Personal history of nicotine dependence; E86.0 Dehydration
CPT/HCPCS: 36415; 71046; 80048; 80053; 82550; 82553; 83735; 83880; 84484; 85025; 85379; 85610; 85730; 93005; 93306; 94640; 96374; 99285

== ENCOUNTER → 2017-11-30 | Outpatient (CLI) | payer MEDICARE, BC ==
[2017-11-30 09:21] LABS: INR 2.2 (<1.2); Prothrombin Time 20.1 sec (9.0-12.0)
[2017-11-30 09:29] LABS: Calcium 9.1 mg/dL (8.4-10.2); Potassium 4.5 mmol/L (3.5-5.1)
== END | disposition home or self-care (01) ==
LOC: LABWHC1 08:10
PROVIDERS: ATTEND Family Medicine
DX: Z51.81 Encounter for therapeutic drug level monitoring (principal); Z79.01 Long term (current) use of anticoagulants
CPT/HCPCS: 36415; 80048; 85610

== ENCOUNTER → 2017-12-20 | Outpatient (CLI) | payer MEDICARE, BC ==
[2017-12-20 16:47] LABS: Calcium 9.4 mg/dL (8.4-10.2); Potassium 4.6 mmol/L (3.5-5.1)
== END | disposition home or self-care (01) ==
LOC: LABWHC1 15:34
PROVIDERS: ATTEND Internal Medicine Cardiovascular Disease
DX: I50.9 Heart failure, unspecified (principal)
CPT/HCPCS: 36415; 80048

== ENCOUNTER 2021-01-14 09:35 | Emergency (ER) | payer MEDICARE, BC ==
[2021-01-14 09:46] VITALS: BP 145/71; PULSE 68; RESP 18; TEMP 98
--- NOTE | 2021-01-14 10:44 | XR ---
EXAMINATION TYPE: XR knee 4V RT DATE OF EXAM: 01/14/2021 CLINICAL HISTORY: Pain and swelling for 1.5 weeks TECHNIQUE: Three views of the right knee are obtained. For sunrise view acquired. COMPARISON: None. FINDINGS: [id number] narrowing medial tibiofemoral compartment with mild to moderate medial s purring. Moderate to severe narrowing with mild to moderate spurring patellofemoral compartment. Incr eased suprapatellar soft tissue density consistent with large joint effusion. Patellar articulation s atisfactory on the sunrise view. There is more mild to moderate narrowing and mild spurring lateral t ibiofemoral compartment. Moderate posterior arteriovascular calcification is present. IMPRESSION: As above.
--- NOTE | 2021-01-14 11:16 | ED ---
Lower Extremity Injury HPI - General Chief Complaint: Extremity Injury, Lower Stated Complaint: right leg swelling Time Seen by Provider: 01/14/21 09:48 Source: patient, RN notes reviewed Mode of arrival: ambulatory Limitations: no limitations - History of Present Illness Initial Comments: Patient is an 89-year-old male that presents to emergency room complaining of right lower extremity pain. He notes that over the last several days to a week he has had increasing pain in his right knee and whole right lower extremity. He notes he does take a loquacious at this time. He notes that he has had right knee surgery. He denies any tenderness or he notes that it hurts more when he walks on it and tries to bear weight. He denied any alleviating factors at this time. Patient is concerned for possible DVT. He denied any chest pain shortness of breath headache nausea vomiting diarrhea constipation fever fatigue chills. - Related Data Home Medications Medication Instructions Recorded Confirmed Budesonide/Formoterol Fumarate 2 puff INHALATION RT-BID 11/24/17 11/24/17 [Symbicort 160-4.5 Mcg Inhaler] Cholecalciferol (Vitamin D3) 4,000 unit PO DAILY 11/24/17 11/24/17 [Vitamin D3] Finasteride [Proscar] 5 mg PO HS 11/24/17 11/24/17 Fluticasone Nasal Erhard [Flonase 2 spr EA NOSTRIL DAILY 11/24/17 11/24/17 Nasal Erhard] Metoprolol Succinate (ER) [Toprol 50 mg PO HS 11/24/17 11/24/17 XL] Multivitamins, Thera [Multivitamin 1 tab PO DAILY 11/24/17 11/24/17 (formulary)] Simvastatin [Zocor] 20 mg PO HS 11/24/17 11/24/17 Tamsulosin [Flomax] 0.4 mg PO HS 11/24/17 11/24/17 Warfarin [Coumadin] 2.5 mg PO SUMOTUTHFR 11/24/17 11/24/17 Warfarin [Coumadin] 5 mg PO WESA 11/24/17 11/24/17 Previous Rx's Medication Instructions Recorded Furosemide [Lasix] 40 mg PO BID@0900,1600 #60 tab 11/27/17 Sacubitril/Valsartan [Entresto 24 1 each PO BID #60 tablet 11/27/17 mg-26 mg Tablet] Spironolactone [Aldactone] 25 mg PO DAILY #30 tab 11/27/17 Allergies Allergy/AdvReac Type Severity Reaction Status Date / Time No Known Allergies Allergy Verified 01/14/21 09:43 Review of Systems ROS Statement: Those systems with pertinent positive or pertinent negative responses have been documented in the HPI. ROS Other: All systems not noted in ROS Statement are negative. Past Medical History Past Medical History: Atrial Fibrillation, Heart Failure, Hyperlipidemia, Hypertension, Prostate Disorder, Sleep Apnea/CPAP/BIPAP History of Any Multi-Drug Resistant Organisms: None Reported Past Surgical History: Hernia Repair, Pacemaker Additional Past Surgical History / Comment(s): exploratory sugery of right kidney Type of Cardiac Device: Permanent Pacemaker Device Placement Date:: 2016 Past Psychological History: No Psychological Hx Reported Smoking Status: Never smoker Past Alcohol Use History: Occasional Past Drug Use History: None Reported General Exam Limitations: no limitations General appearance: alert, in no apparent distress Head exam: Present: atraumatic, normocephalic, normal inspection Eye exam: Present: normal appearance, PERRL, EOMI. Absent: scleral icterus, conjunctival injection, periorbital swelling Neck exam: Present: normal inspection Respiratory exam: Present: normal lung sounds bilaterally. Absent: respiratory distress, wheezes, rales, rhonchi, stridor Cardiovascular Exam: Present: regular rate, normal rhythm, normal heart sounds. Absent: systolic murmur, diastolic murmur, rubs, gallop, clicks Right Hip exam: Present: normal inspection, full ROM. Absent: tenderness Upper Leg exam: Present: normal inspection, full ROM. Absent: tenderness Knee exam: Present: normal inspection, full ROM, swelling. Absent: tenderness Lower Leg exam: Present: normal inspection, full ROM. Absent: tenderness Ankle exam: Present: normal inspection, full ROM. Absent: tenderness Foot/Toe exam: Present: normal inspection, full ROM, swelling. Absent: tenderness Neurological exam: Present: alert, oriented X3 Psychiatric exam: Present: normal affect, normal mood Skin exam: Present: warm, dry, intact, normal color. Absent: rash Course Vital Signs 01/14/21 09:43 Temperature 98 F Pulse Rate 68 Respiratory 18 Rate Blood Pressure 145/71 O2 Sat by Pulse 97 Oximetry Medical Decision Making - Medical Decision Making 89-year-old male complaining of right lower extremity pain concern for possible DVT. Ultrasound right lower extremity, x-ray right knee due to swelling surrounding the right knee. X-ray shows a large right knee effusion. Ultrasound negative for DVT. case discussed with Dr. Aguilar, patient can discharge home with follow up to primary care - Radiology Data Radiology results: report reviewed, image reviewed Right knee x-ray: Moderate to severe narrowing medial tibiofemoral compartment with mild to moderate medial spurring. Moderate to severe narrowing with mild to moderate spurring patellofemoral compartment. Increased suprapatellar soft tissue density consistent with large joint effusion. Patellar articulation satisfactory on the sunrise view. There is more mild to moderate narrowing and mild spurring the lateral tibiofemoral compartment. Moderate posterior arterial vascular calcification is present. Ultrasound right lower extremity: No evidence of deep vein thrombosis in the right lower extremity from the knee centrally. Indeterminate area of abnormality as described findings could be related to a hematoma correlate to exclude abscess. Follow-up clinically and consider additional imaging as indicated. There is right ankle edema. Disposition Clinical Impression: Effusion, right knee, Right leg pain Disposition: HOME SELF-CARE Condition: Stable Instructions (If sedation given, give patient instructions): Knee Pain (ED) Additional Instructions: Please return to the Emergency Department if symptoms worsen or any other concerns. Follow-up with primary care 1-2 days. Follow-up with orthopedic and urologist as planned. Rest ice compress elevate. Keep compression on the knee to help reduce fluid retention. Is patient prescribed a controlled substance at d/c from ED?: No Referrals: Nonstaff,Physician [Primary Care Provider] - 1-2 days Time of Disposition: 11:43
--- NOTE | 2021-01-14 11:29 | US ---
EXAMINATION TYPE: US venous doppler duplex LE RT DATE OF EXAM: 01/14/2021 11:17 AM COMPARISON: NONE CLINICAL HISTORY: pain. EC patient with Right lateral thigh pain and right leg swelling; CHF per triston ent. SIDE PERFORMED: Right TECHNIQUE: The lower extremity deep venous system is examined utilizing real time linear array sonog leonor with graded compression, doppler sonography and color-flow sonography. VESSELS IMAGED: Common Femoral Vein Deep Femoral Vein Greater Saphenous Vein * Femoral Vein Popliteal Vein Small Saphenous Vein * Proximal Calf Veins (* superficial vessels) There is normal flow, compressibility, vascular waveforms. Right Leg: Negative for DVT. at medial right knee complex fluid collection is seen = 11.4 x 3.7 x 1. 7cm and lateral to right knee complex fluid collection is present = 7.2 x 5.3 x 1.9cm. Right ankle e alfonso channels are also noted. IMPRESSION: No evidence of deep venous thrombosis in the right lower extremity from the knee central ly. Indeterminate area of abnormality as described, findings could be related to hematoma, correlate to exclude abscess, follow-up clinically and consider additional imaging as indicated. There is right ankle edema.
== END 2021-01-14 12:29 | disposition home or self-care (01) ==
LOC: EC 09:35
DX: M25.461 Effusion, right knee (principal); M79.661 Pain in right lower leg; I11.0 Hypertensive heart disease with heart failure; I50.9 Heart failure, unspecified; I48.91 Unspecified atrial fibrillation; E78.5 Hyperlipidemia, unspecified; Z79.01 Long term (current) use of anticoagulants; Z95.0 Presence of cardiac pacemaker; Z79.899 Other long term (current) drug therapy
CPT/HCPCS: 99284